=== PATIENT | male | born 1955 | race Caucasian/White ===

== ENCOUNTER 2018-03-04 15:15 | Emergency (ER) | payer BC ==
[2018-03-04] MEDS ORDERED: SODIUM CHLORIDE 0.9% 500 ML IV ONE (15:38)
--- NOTE | 2018-03-04 15:47 | Emergency Department Record ---
History of Present Illness - General Chief complaint: Flank Pain Stated complaint: RT FLANK PAIN Time Seen by Provider: 03/04/18 15:30 Source: Patient Mode of Arrival: Ambulatory Limitations: No limitations - History of Present Illness Initial comments: The patient is here due to the acute onset of R flank pain about 6 hours ago. The pain was sharp and stabbing and nonradiating and was not associated with nausea or vomiting. The patient has had mild dysuria. The patient has a long hx of R kidney stones and has had a very large stone in the past that needed surgery. Since presenting to the ER he did urinate for us and did pass what appears to be a 3-4 mm stone and his pain has since resolved. MD Complaint: Other Onset/Timin -: Hour(s) Location: Right flank Radiation: RLQ Severity: Moderate Severity scale (1-10): 6 Quality: Aching, Dull Consistency: Constant Improves with: Medication, Urination Worsens with: Movement - Related Data Sexually active: Yes Home Medications Medication Instructions Recorded Confirmed Last Taken Famotidine [Pepcid] 1 tab PO DAILY 03/04/18 03/04/18 03/04/18 Potassium Citrate [Urocit-K] 10 meq PO DAILY 03/04/18 03/04/18 03/04/18 Previous Rx's Medication Instructions Recorded Hydrocodone/Acetaminophen [[place] 1 each PO QID #12 tablet 03/04/18 5-325 Tablet] Tamsulosin HCl [Flomax] 0.4 mg PO DAILY #7 cap.er.24h 03/04/18 Allergies Allergy/AdvReac Type Severity Reaction Status Date / Time No Known Drug Allergies Allergy Verified 06/15/15 21:24 Travel Screening - Travel/Exposure Within Last 30 Days Have you traveled within the last 30 days?: No - Travel/Exposure Within Last Year Have you traveled outside the [place] in the last year?: No - Additonal Travel Details Have you been exposed to anyone with a communicable illness?: No - Travel Symptoms Symptom Screening: None Review of Systems Constitutional: Denies: Chills, Fever, Malaise Eyes: Denies: Eye discharge ENT: Denies: Congestion Respiratory: Denies: Cough, Dyspnea Cardiovascular: Denies: Chest pain Past Medical History - SOCIAL HISTORY Smoking Status: Never smoker Alcohol Use: Occasional Drug Use: None - RESPIRATORY Hx Respiratory Disorders: Yes Hx Pneumonia: Yes Hx Sleep Apnea: No Hx of CPAP: No (has not used since bariatric sx) - CARDIOVASCULAR Hx Cardio Disorders: Yes Hx Deep Vein Thrombosis: Yes (10 years ago) Hx Hypertension: Yes Comment:: aortic valve replaced - NEURO Hx Neuro Disorders: No - GI Hx GI Disorders: Yes Hx Abdominal Pain: Yes Hx Hiatal Hernia: Yes (2013) Hx Wt Loss/Wt Gain: Yes (bariatric surgery) Hx of Polyps: Yes Comment:: loss of 210#'s since Nov 2013 Hiatal hernia repair at the time of bariatric - Hx Genitourinary Disorders: Yes Hx Kidney Stones: Yes - ENDOCRINE Hx Endocrine Disorders: Yes Hx Diabetes: Yes (previously) Hx Thyroid Disease: Yes (parathyriod disease) Comment:: not since weight loss - MUSCULOSKELETAL Hx Musculoskeletal Disorders: Yes - PSYCH Hx Psych Problems: No - HEMATOLOGY/ONCOLOGY Hx Hematology/Oncology Disorders: No Family Medical History Any Significant Family History?: No Family Hx Comment (NOT TO BE USED IN PLACE OF ITEMS BELOW): Pt is adopted and has no info on biological family Physical Exam - General General Appearance: Alert, Oriented x3, Cooperative, No acute distress - Head Head exam: Atraumatic, Normocephalic, Normal inspection - Eye Eye exam: Normal appearance, PERRL - Neck Neck exam: Normal inspection, Full ROM. negative: Tenderness - Respiratory Respiratory exam: Normal lung sounds bilaterally. negative: Respiratory distress - Cardiovascular Cardiovascular Exam: Regular rate, Normal rhythm, Normal heart sounds - GI/Abdominal GI/Abdominal exam: Soft, Normal bowel sounds. negative: Rebound, Rigid, Tenderness - Extremities Extremities exam: Normal inspection, Full ROM, Normal capillary refill. negative: Tenderness - Neurological Neurological exam: Alert. negative: Motor sensory deficit Course Vital Signs 03/04/18 15:27 Temperature 98.0 F Pulse Rate 58 L Respiratory 18 Rate Blood Pressure 155/93 Pulse Ox 98 - Reevaluation(s) Reevaluation #1: The patient is doing better at this time. He did pass a 2nd stone while in the ED. His pain is well controlled and he feels comfortable going home and following up with his Urologist this week. He understands the need to return for any worsening symptoms. 03/04/18 17:10 Medical Decision Making - Data Complexity MDM Data: Labs Ordered and/or Reviewed, X-Ray Ordered and/or Reviewed - Lab Data Result diagrams: 03/04/18 15:45 03/04/18 15:45 - Radiology Data Radiology results: Report reviewed (CT: 2 stones, 5 and 6 mm distla R ureter with hydro and stranding.) Disposition Disposition: Discharge Clinical Impression: Ureteral stone with hydronephrosis Disposition: Home, Self-Care Condition: (2) Stable Instructions: Ureteral Stones (ED) Additional Instructions: Please drink plenty of fluids and take the Flomax as directed and use the [place] for pain. Please see Dr. Folyd in the office later this week. Return to the ER for any worsening pain, or any fever, or vomiting. Prescriptions: Hydrocodone/Acetaminophen [[place] 5-325 Tablet] 1 each PO QID #12 tablet Tamsulosin HCl [Flomax] 0.4 mg PO DAILY #7 cap.er.24h Forms: Patient Portal Access Time of Disposition: 17:14 Quality - Quality Measures Quality Measures: N/A - Blood Pressure Screening View Details: Yes Does Patient Have Any of the Following: No Blood Pressure Classification: Hypertensive Reading Systolic Measurement: 155 Diastolic Measurement: 93 Screening for High Blood Pressure: < First Hypertensive BP, F/U Documented > [ G8950] First Hypertensive Follow-up Interventions: Referral to alternative/primary care provider.
[2018-03-04 16:04] LABS: URINE APPEARANCE SL CLOUDY; URINE BILIRUBIN NEGATIVE (NEGATIVE); URINE BLOOD LARGE (NEGATIVE); URINE COLOR YELLOW; URINE GLUCOSE (UA) NEGATIVE (NEGATIVE); URINE KETONE TRACE (NEGATIVE); URINE LEUKOCYTE ESTERASE NEGATIVE (NEGATIVE); URINE NITRITE NEGATIVE (NEGATIVE); URINE PROTEIN NEGATIVE (NEGATIVE); URINE UROBILINOGEN 0.2 E.U./dL (0.20 - 1.00)
[2018-03-04 16:05] LABS: HEMATOCRIT 44.5 % (42.0-52.0); HEMOGLOBIN 14.5 gm/dl (14.0-18.0); MEAN CELL VOLUME 82.7 fl (81-97); MEAN CORPUSCULAR HGB CONC 32.6 g/dl (32-36); MEAN PLATELET VOLUME 11.2 fl (7.4-10.4); PLATELET COUNT 201 K/uL (130-400); RED BLOOD COUNT 5.38 M/uL (4.40-5.70); RED CELL DISTRIBUTION WIDTH 15.3 % (11.5-14.5); WHITE BLOOD COUNT W/O DIFF 10.2 K/uL (4.2-12.2)
[2018-03-04 16:13] LABS: URINE EPITHELIAL CELLS 0 - 2 (FEW); URINE WBC NONE SEEN (0-2/hpf)
[2018-03-04 16:14] LABS: BLOOD UREA NITROGEN 22 mg/dL (8-23); CREATININE 1.4 mg/dL (0.7-1.2); EST GLOMERULAR FILTRATION RATE 54 mL/min
[2018-03-04 16:15] LABS: TOTAL PROTEIN 7.2 g/dL (6.6-8.7)
[2018-03-04 16:16] LABS: PLATELET ESTIMATE NORMAL (NORMAL)
[2018-03-04] MEDS ORDERED: ONDANSETRON HCL IV 4 MG/2 ML VIAL IVP ONE (16:16)
[2018-03-04] MEDS ORDERED: MORPHINE SULFATE 10 MG/ML VIAL IVP ONE (16:16)
[2018-03-04 16:17] LABS: GLUCOSE,RANDOM 88 mg/dL (74-109)
[2018-03-04 16:19] LABS: ALBUMIN 4.2 g/dL (4.0-5.0); ALT/SGPT 21 U/L (<41); AST/SGOT 28 U/L (10.0-50.0)
[2018-03-04 16:20] LABS: ALKALINE PHOSPHATASE 132 U/L (55-149); BILIRUBIN,DIRECT < 0.2 mg/dL (0-0.3)
[2018-03-04] MEDS ORDERED: HYDROMORPHONE HCL 2 MG/ML VIAL IVP ONE (16:24)
--- NOTE | 2018-03-05 07:32 | CT SCAN REPORT ---
EXAM: CT SCAN OF THE ABDOMEN AND PELVIS WITHOUT CONTRAST HISTORY: RIGHT FLANK PAIN TODAY. TECHNIQUE: Standard CT imaging of the abdomen and pelvis was performed without contrast. Comparison: 06/15/15. FINDINGS: There is a small right pleural effusion with associated atelectasis or scarring. The effusion has decreased in size when compared to the previous exam. A small hiatal hernia is present. The patient is status post gastric sleeve procedure. The liver appears normal. The gallbladder is surgically absent. The biliary tree, pancreas, spleen, and left adrenal gland are normal. There is a stable low density right adrenal adenoma. There are two stones within the distal right ureter just above the ureterovesical junction. These measure 5 mm and 6 mm. There is moderate right hydronephrosis with associated perinephric fat stranding. There are multiple nonobstructing stones within the right kidney. Approximately eight stones are visible. The largest is located within the mid pole region and measures 13 x 8 mm. There are two 4 mm nonobstructing stones within the left kidney. There is no left hydronephrosis. The aorta is normal in caliber. There is no retroperitoneal lymphadenopathy. There are scattered diverticula within the colon and greatest within the sigmoid region. There is no evidence for acute diverticulitis. There is nonspecific wall thickening of the rectum which may be artifactual due to incomplete distention. There is no pneumoperitoneum or ascites. The urinary bladder and prostate gland appear within normal limits. Degenerative changes are present within the spine. IMPRESSION: 1. 6 MM AND 5 MM STONES ARE PRESENT WITHIN THE DISTAL RIGHT URETER AND RESULT IN MODERATE HYDRONEPHROSIS AND PERINEPHRIC FAT STRANDING. 2. THERE ARE MULTIPLE NONOBSTRUCTING STONES WITHIN THE RIGHT KIDNEY, THE LARGEST OF WHICH MEASURES 13 X 8 MM. THERE ARE TWO NONOBSTRUCTING STONES WITHIN THE LEFT KIDNEY, THE LARGEST OF WHICH MEASURES 4 MM. 3. SMALL RIGHT PLEURAL EFFUSION WHICH HAS DECREASED IN SIZE FROM THE PREVIOUS EXAMINATION. 4. COLONIC DIVERTICULOSIS WITH NO DIVERTICULITIS. JOB NUMBER: [id number] [facility]
== END 2018-03-04 17:28 | disposition home or self-care (01) ==
LOC: ER 15:15
DX: N13.2 Hydronephrosis with renal and ureteral calculous obstruction (principal); R30.0 Dysuria; I10 Essential (primary) hypertension; Z87.442 Personal history of urinary calculi; Z86.718 Personal history of other venous thrombosis and embolism; Z98.84 Bariatric surgery status
CPT/HCPCS: 99284 ×2; 96374; 96375; 96361; 80076; 80048; 81001; 85027; 74176; J2405; J1170

== ENCOUNTER 2018-06-27 00:04 | Observation (INO) | payer BC ==
[2018-06-27] MEDS ORDERED: 0.9 % SODIUM CHLORIDE 1000ML 1,000 ML IV SCH (00:15)
--- NOTE | 2018-06-27 00:19 | Emergency Department Record ---
History of Present Illness - General Chief Complaint: Fever Stated Complaint: POST OP FEVER Time Seen by Provider: 06/27/18 00:04 Source: Patient Mode of Arrival: Ambulatory Limitations: No limitations - History of Present Illness Initial Comments: 62 yo male presents to ED for evaluation of fever symptoms at home (101 at home) including fatigue, body aches, and dysuria symptoms. Patient is s/p percutaneous nephrostomy tube placement s/p removal [address] Acosta. Patient reports dysuria symptoms that began 4 days ago, was started on Macrobid 3 days ago. Patient reports that his symptoms were improving until this evening. Patient denies cough or abdominal pain symptoms. MD Complaint: Fever Onset/Timin -: Days(s) Maximum Temperature: 102 F Temperature Source: Tympanic Context: Recent procedure, Recent antibiotic use Associated Symptoms: Headache - Related Data Home Medications Medication Instructions Recorded Confirmed Last Taken Apixaban [Eliquis] 5 mg PO DAILY 06/27/18 06/27/18 Unknown Dofetilide 500 mcg PO DAILY 06/27/18 06/27/18 Unknown Nitrofurantoin [place] [Macrobid] 100 mg PO BID 06/27/18 06/27/18 Unknown Tamsulosin HCl [Flomax] 0.4 mg PO DAILY 06/27/18 06/27/18 Unknown Previous Rx's Medication Instructions Recorded Hydrocodone/Acetaminophen [[place] 1 each PO QID #12 tablet 03/04/18 5-325 Tablet] Tamsulosin HCl [Flomax] 0.4 mg PO DAILY #7 cap.er.24h 03/04/18 Allergies Allergy/AdvReac Type Severity Reaction Status Date / Time No Known Drug Allergies Allergy Verified 06/15/15 21:24 Travel Screening - Travel/Exposure Within Last 30 Days Have you traveled within the last 30 days?: No - Travel Symptoms Symptom Screening: Fever (Subjective) Review of Systems Constitutional: Reports: Chills, Fever, Malaise. Denies: Night sweats Eyes: Denies: Eye discharge, Eye pain ENT: Denies: Congestion, Ear pain, Epistaxis Respiratory: Denies: Cough, Dyspnea Cardiovascular: Denies: Chest pain, Dyspnea on exertion Endocrine: Denies: Fatigue, Heat or cold intolerance Gastrointestinal: Denies: Abdominal pain, Nausea, Vomiting Genitourinary: Reports: Dysuria, Frequency Musculoskeletal: Reports: Myalgia. Denies: Arthralgia, Back pain Skin: Denies: Bruising, Change in color Neurological: Reports: Headache. Denies: Abnormal gait, Confusion, Seizure Psychiatric: Denies: Anxiety Hematological/Lymphatic: Denies: Anemia, Blood Clots Past Medical History - SOCIAL HISTORY Smoking Status: Never smoker Drug Use: None - RESPIRATORY Hx Respiratory Disorders: Yes Hx Pneumonia: Yes Hx Sleep Apnea: No Hx of CPAP: No (has not used since bariatric sx) - CARDIOVASCULAR Hx Cardio Disorders: Yes Hx Deep Vein Thrombosis: Yes (10 years ago) Hx Hypertension: Yes Comment:: aortic valve replaced - NEURO Hx Neuro Disorders: No - GI Hx GI Disorders: Yes Hx Abdominal Pain: Yes Hx Hiatal Hernia: Yes (2013) Hx Wt Loss/Wt Gain: Yes (bariatric surgery) Hx of Polyps: Yes Comment:: loss of 210#'s since Nov 2013 Hiatal hernia repair at the time of bariatric - Hx Genitourinary Disorders: Yes Hx Kidney Stones: Yes - ENDOCRINE Hx Endocrine Disorders: Yes Hx Diabetes: Yes (previously) Hx Thyroid Disease: Yes (parathyriod disease) Comment:: not since weight loss - MUSCULOSKELETAL Hx Musculoskeletal Disorders: Yes - PSYCH Hx Psych Problems: No - HEMATOLOGY/ONCOLOGY Hx Hematology/Oncology Disorders: No Family Medical History Family Hx Comment (NOT TO BE USED IN PLACE OF ITEMS BELOW): Pt is adopted and has no info on biological family Physical Exam - General General Appearance: Alert, Oriented x3, Cooperative, Mild distress Limitations: No limitations - Head Head exam: Atraumatic, Normocephalic, Normal inspection Head exam detail: negative: Abrasion, Contusion, Coe's sign, General tenderness, Hematoma, Laceration - Eye Eye exam: Normal appearance. negative: Conjunctival injection, Periorbital swelling, Periorbital tenderness, Scleral icterus - ENT Ear exam: negative: Auricular hematoma, Auricular trauma Nasal Exam: negative: Active bleeding, Discharge, Dried blood, Foreign body Mouth exam: negative: Drooling, Laceration, Muffled voice, Tongue elevation - Neck Neck exam: Normal inspection. negative: Meningismus, Tenderness - Respiratory Respiratory exam: Normal lung sounds bilaterally. negative: Rales, Respiratory distress, Rhonchi, Stridor - Cardiovascular Cardiovascular Exam: Regular rate, Normal rhythm, Normal heart sounds - GI/Abdominal GI/Abdominal exam: Soft. negative: Rebound, Rigid, Tenderness - Rectal Rectal exam: Deferred - exam: Deferred - Extremities Extremities exam: Normal inspection. negative: Pedal edema - Back Back exam: Reports: Other (Post-operative site right lower lumbar region appears clean, dry, and without evidence for infection). Denies: CVA tenderness (R), CVA tenderness (L) - Neurological Neurological exam: Alert, Normal gait, Oriented X3 - Psychiatric Psychiatric exam: Normal affect, Normal mood - Skin Skin exam: Normal color. negative: Abrasion Type of lesion: negative: abrasion Course Vital Signs 06/27/18 00:11 Temperature 98.6 F Pulse Rate [ 80 Pulse Ox Probe] Respiratory 20 Rate Blood Pressure 152/103 [Right Arm] Pulse Ox 97 - Reevaluation(s) Reevaluation #1: 06/27/18 00:52 Initial laboratory studies were reviewed: WBC 7.1, 88% Neutrophils, 0 Bands UA demonstrates: 1+ Oxylate crystals Few Bacteria 10-15 WBCs Patient has returned from CT imaging, results are pending at this time. Reevaluation #2: 06/27/18 01:13 CT Abdomen and Pelvis: Urinary bladder wall thickening c/w cystitis Findings c/w recent stone passage vs. pyelonephritis Patient was updated on all results, will discuss findings with Dr. Acosta. Reevaluation #3: 06/27/18 01:31 Case was discussed with Dr. Acosta, reviewed patient's laboratory findings and CT results, recommends admission and treatment with Ampicillin/Gentamycin for possible failed outpatient treatment of pyelonephritis. Patient and his were updated on the plan of care for admission and further treatment, and are in agreement with the plan of care as directed. Reevaluation #4: 06/27/18 06:50 Case was discussed with Catarino Malik NP, will accept admission at this time. Medical Decision Making - Lab Data Result diagrams: 06/27/18 00:30 06/27/18 00:30 Disposition Disposition: Admit Clinical Impression: Pyelonephritis Disposition: Still a Patient at [facility] Decision to Admit: Admit from ER Decision to Admit Date: 06/27/18 Decision to Admit Time: 01:33 Condition: (2) Stable Time of Disposition: 01:33 Quality - Quality Measures Quality Measures: N/A - Blood Pressure Screening Does Patient Have Any of the Following: Active Dx of HTN Blood Pressure Classification: Normal BP Reading Systolic Measurement: 106 Diastolic Measurement: 73 Screening for High Blood Pressure: Patient Exclusion, Hx of HTN [G9744]
[2018-06-27 00:20] LABS: URINE APPEARANCE CLEAR; URINE BILIRUBIN NEGATIVE (NEGATIVE); URINE BLOOD MODERATE (NEGATIVE); URINE COLOR YELLOW; URINE GLUCOSE (UA) NEGATIVE (NEGATIVE); URINE KETONE NEGATIVE (NEGATIVE); URINE LEUKOCYTE ESTERASE TRACE (NEGATIVE); URINE NITRITE NEGATIVE (NEGATIVE); URINE PROTEIN TRACE (NEGATIVE); URINE UROBILINOGEN 0.2 E.U./dL (0.20 - 1.00)
[2018-06-27 00:36] LABS: URINE BACTERIA FEW; URINE CALCIUM OXALATE CRYSTALS 1+ /hpf; URINE EPITHELIAL CELLS 0 - 2 (FEW)
[2018-06-27 00:36] LABS: ABSOLUTE NEUTROPHIL COUNT 6.19; BASO % 0.3 % (0-6); EOS % 0.8 % (0-6); HEMOGLOBIN 14.2 gm/dl (14.0-18.0); LYMPH % 4.5 % (16-45); MEAN CELL VOLUME 81.9 fl (81-97); MEAN CORPUSCULAR HEMOGLOBIN 26.4 pg (27-33); MEAN CORPUSCULAR HGB CONC 32.3 g/dl (32-36); MEAN PLATELET VOLUME 10.4 fl (7.4-10.4); MONO % 7.2 % (0-9); PLATELET COUNT 202 K/uL (130-400); RED BLOOD COUNT 5.37 M/uL (4.40-5.70); RED CELL DISTRIBUTION WIDTH 14.2 % (11.5-14.5); WHITE BLOOD COUNT W/O DIFF 7.1 K/uL (4.2-12.2)
[2018-06-27 00:48] LABS: BLOOD UREA NITROGEN 30 mg/dL (8-23); CREATININE 1.2 mg/dL (0.7-1.2); EST GLOMERULAR FILTRATION RATE > 60 mL/min
[2018-06-27 00:49] LABS: TOTAL PROTEIN 7.5 g/dL (6.6-8.7)
[2018-06-27 00:51] LABS: GLUCOSE,RANDOM 122 mg/dL (74-109)
[2018-06-27 00:54] LABS: ALB/GLOB RATIO 1.1 (1.1-1.8); ALKALINE PHOSPHATASE 141 U/L (40-129); ALT/SGPT 18 U/L (<41); AST/SGOT 22 U/L (10.0-50.0)
[2018-06-27] MEDS ORDERED: AMPICILLIN SODIUM/SULBACTAM NA 3 G in 0.9 % SODIUM CHLORIDE 100ML 100 ML IVPB ONE (01:30)
[2018-06-27] MEDS ORDERED: SODIUM CHLORIDE 0.9% IV ONE (01:30)
[2018-06-27] MEDS ORDERED: GENTAMICIN SULFATE IV ONE (01:30)
[2018-06-27] MEDS ORDERED: KETOROLAC 30 MG/ML VIAL IVP ONE (01:49)
[2018-06-27] MEDS ORDERED: GENTAMICIN SULFATE 120 MG in 0.9 % SODIUM CHLORIDE 100ML 100 ML IV SCH (02:31)
[2018-06-27] MEDS ORDERED: AMPICILLIN SODIUM/SULBACTAM NA 3 G in 0.9 % SODIUM CHLORIDE 100ML 100 ML IVPB SCH ×2 (02:31→08:00)
[2018-06-27] MEDS: 0.9 % SODIUM CHLORIDE 1000ML 1,000 ML IV PRN ×3 (02:53→20:49)
[2018-06-27] MEDS: ACETAMINOPHEN 500 MG TABLET PO PRN ×2 (03:23→15:35)
[2018-06-27] MEDS: IBUPROFEN 600 MG TABLET PO PRN ×2 (06:08→18:04)
--- NOTE | 2018-06-27 08:05 | CT SCAN REPORT ---
EXAM: CT OF THE ABDOMEN AND PELVIS WITHOUT CONTRAST HISTORY: FEVER, CHILLS AND BODY ACHES. LITHOTRIPSY TWO WEEKS AGO. PRIOR APPENDECTOMY, CHOLECYSTECTOMY, AND BARIATRIC SURGERY. TECHNIQUE: Routine noncontrast CT examination of the abdomen and pelvis was obtained. Lack of oral and IV contrast utilization limits evaluation of the bowel and solid viscera respectively. Comparison: CT of the abdomen and pelvis without contrast dated 03/04/18. FINDINGS: Smooth pleural thickening is again noted in the right hemithorax base likely relating to scarring. There may be a tiny loculated pleural effusion. These findings are unchanged. Also unchanged is linear scarring/atelectasis scattered within the right lung base. The left lung base is grossly clear with the exception of minor linear scarring versus atelectasis. The heart remains mildly enlarged. Mitral annulus calcification is redemonstrated. A small hiatal hernia persists. No new focal abnormality demonstrated within the liver, spleen, pancreas, nor adrenal glands. There is redemonstration of a low density right adrenal gland mass. This measures 2.7 x 1.9 cm. It has a density of -5 Hounsfield units. It is consistent with a lipid rich adenoma. The gallbladder is surgically absent and no biliary ductal dilatation is seen. The kidneys remain normal in position and smoothly marginated. The previously demonstrated obstructing calculus within the distal right ureter is no longer present. There has been resolution of the previously demonstrated right hydroureteronephrosis and there has been clearing of the right perinephric edema/fluid. The previously demonstrated dominant obstructing calculus in the right mid kidney measuring 12.6 mm in maximum diameter is no longer present. In addition, the previously demonstrated larger nonobstructing calculi in the lower right kidney are no longer visualized. Tiny calcifications, however, persist in the lower pole in a somewhat linear configuration. These are unchanged. A few nonobstructing calculi are again noted in the lower pole of the left kidney with the largest measuring approximately 3-4 mm. No obstructive uropathy identified. Evaluation of the urinary bladder is limited by lack of distention. Mild perinephric fat stranding is suggested and there may be mild thickening of the bladder wall. Moderate enlargement of the prostate gland is stable. No new pelvic mass nor adenopathy. No free pelvic fluid. Minor presacral edema is new in the interval. This is nonspecific. No new gross bowel dilatation nor bowel wall thickening. There is colonic diverticulosis without evidence of diverticulitis. By history, the appendix is surgically absent. Post gastric sleeve surgery changes redemonstrated. IMPRESSION: 1. THE PREVIOUSLY DEMONSTRATED OBSTRUCTING CALCULUS IN THE LOWER RIGHT URETER IS NO LONGER PRESENT WITH RESOLUTION OF HYDROURETERONEPHROSIS AND PERINEPHRIC EDEMA. 2. SEVERAL OF THE PREVIOUSLY DEMONSTRATED NONOBSTRUCTING CALCULI IN THE RIGHT KIDNEY ARE NO LONGER IDENTIFIED CONSISTENT WITH HISTORY OF LITHOTRIPSY. TINY CALCULI PERSISTS IN THE LOWER POLE OF THE RIGHT KIDNEY AND THERE ARE A FEW SMALL NONOBSTRUCTING CALCULI WITHIN THE LOWER POLE OF THE LEFT KIDNEY. 3. STATUS POST APPENDECTOMY, CHOLECYSTECTOMY, AND GASTRIC SLEEVE SURGERY. 4. SMALL HIATAL HERNIA REDEMONSTRATED. 5. STABLE RIGHT ADRENAL ADENOMA. 6. APPARENT WALL THICKENING OF THE URINARY BLADDER. THIS MAY JUST RELATE TO INCOMPLETE DISTENTION. THERE IS, HOWEVER, MINOR PERIVESICAL FAT STRANDING. CYSTITIS IS NOT EXCLUDED. MINIMAL NONSPECIFIC PRESACRAL EDEMA, NEW SINCE THE PRIOR EXAMINATION. 7. COLONIC DIVERTICULOSIS WITHOUT EVIDENCE OF DIVERTICULITIS. 8. PLEURAL AND PARENCHYMAL SCARRING REDEMONSTRATED IN THE RIGHT HEMITHORAX BASE. STABLE CARDIOMEGALY. [facility]: [id number] [facility]
[2018-06-27] MEDS ORDERED: HYDROCODONE/APAP 5/325MG TABLET PO SCH (10:00)
[2018-06-27] MEDS ORDERED: APIXABAN 5MG TABLET PO SCH (10:00)
[2018-06-27] MEDS: FAMOTIDINE 20MG TABLET PO SCH (11:06)
[2018-06-27] MEDS: APIXABAN 5MG TABLET PO SCH ×2 (11:06→21:37)
[2018-06-27] MEDS: CALCIUM CITRATE 1200 MG PO SCH (11:06)
[2018-06-27] MEDS: VITAMIN D PO SCH ×2 (11:07→21:39)
[2018-06-27] MEDS: ZINC GLUCONATE 50 MG PO SCH (11:07)
[2018-06-27] MEDS: FERROUS SULFATE 45 MG PO SCH (11:07)
[2018-06-27] MEDS: VITAMIN A 25000 UNIT PO SCH ×2 (11:07→21:39)
[2018-06-27] MEDS: POTASSIUM CITRATE 10 MEQ PO SCH (11:08)
[2018-06-27] MEDS: DOFETILIDE 500 MCG PO SCH ×2 (11:08→21:39)
[2018-06-27] MEDS: CEFTRIAXONE 1GM/50ML BAG 1 GM/50 ML BAG IVPB SCH ×2 (12:07→21:41)
--- NOTE | 2018-06-27 12:50 | History & Physical ---
History of Present Illness - Date of Service Date of Service for History & Physical: 06/27/18 - History of Present Illness Admitting Diagnosis: Pyelonephritis. Recent percutaneous nephrostomy tube placement/removal History of Present Illness: Feliberto Perez is a 62 y.o. M who presented to the ED d/t worsening fever, fatigue, body aches, urgency and nocturia that started 4 days ago. Reported that he had a percutaneous nephrostomy tube that was removed approximately 10 days ago. Follows with Dr. Bautista (Urologist). Stated that he went to his PCP 3 days ago and was placed on Macrobid and that his PCP wanted to put him on cipro but was hesistant d/t his use of Tikosyn. PMHx: Hx of AVR, Hx of DVT, HTN, Hx of bariatric surgery, hx of kidney stones PCP: Dr. Demarcus Oliveros ED Course Vitals: T98.6, BP 152/103, HR 80, RR 20, SPO2 97% on RA WBC 7.1, Neutrophils 88%, Bands 0 U/A: 1+ Oxylate crystals, few bacteria and 10-[address] Abd/Pelvis: Urinary bladder wall thickening consistent with cystitis, Findings consistent with recent stone passage vs. Pyelonephrhitis 06/27/18 1130 Vitals: T 99.1, BP 98/48, RR 18, HR 67, SPO2 96% on RA Lying in bed with blankets pulled up to chin, A&Ox3. Reports that he has the chills and a head ache. States that he "just wants to get rid of this" so that he can continue on with his busy work life. Denies having any abdominal or kidney pain. Is having normal back pain d/t uncomfortable bed. Travel Screening - Travel/Exposure Within Last 30 Days Have you traveled within the last 30 days?: No - Travel/Exposure Within Last Year Have you traveled outside the [place] in the last year?: No - Additonal Travel Details Have you been exposed to anyone with a communicable illness?: No - Travel Symptoms Symptom Screening: Fever (Subjective) Review of Systems Reviewed: No additional complaints except as noted below Constitutional: Reports: Chills, Fever, Malaise. Denies: Night sweats Eyes: Denies: Eye discharge, Eye pain ENT: Denies: Congestion, Ear pain, Epistaxis Respiratory: Denies: Cough, Dyspnea Cardiovascular: Denies: Chest pain, Dyspnea on exertion Endocrine: Denies: Fatigue, Heat or cold intolerance Gastrointestinal: Denies: Abdominal pain, Nausea, Vomiting Genitourinary: Reports: Dysuria, Frequency Musculoskeletal: Reports: Myalgia. Denies: Arthralgia, Back pain Skin: Denies: Bruising, Change in color Neurological: Reports: Headache. Denies: Abnormal gait, Confusion, Seizure Psychiatric: Denies: Anxiety Hematological/Lymphatic: Denies: Anemia, Blood Clots Past Medical History - SOCIAL HISTORY Smoking Status: Never smoker Drug Use: None - RESPIRATORY Hx Respiratory Disorders: Yes Hx Pneumonia: Yes Hx Sleep Apnea: No Hx of CPAP: No (has not used since bariatric sx) - CARDIOVASCULAR Hx Cardio Disorders: Yes Hx Deep Vein Thrombosis: Yes (10 years ago) Hx Hypertension: Yes Comment:: aortic valve replaced - NEURO Hx Neuro Disorders: No - GI Hx GI Disorders: Yes Hx Abdominal Pain: Yes Hx Hiatal Hernia: Yes (2013) Hx Wt Loss/Wt Gain: Yes (bariatric surgery) Hx of Polyps: Yes Comment:: loss of 210#'s since Nov 2013 Hiatal hernia repair at the time of bariatric - Hx Genitourinary Disorders: Yes Hx Kidney Stones: Yes - ENDOCRINE Hx Endocrine Disorders: Yes Hx Diabetes: Yes (previously) Hx Thyroid Disease: Yes (parathyriod disease) Comment:: not since weight loss - MUSCULOSKELETAL Hx Musculoskeletal Disorders: Yes - PSYCH Hx Psych Problems: No - HEMATOLOGY/ONCOLOGY Hx Hematology/Oncology Disorders: No Family Medical History Family Hx Comment (NOT TO BE USED IN PLACE OF ITEMS BELOW): Pt is adopted and has no info on biological family H&P Meds/Allergies - Allergies Allergies: Allergies Allergy/AdvReac Type Severity Reaction Status Date / Time No Known Drug Allergies Allergy Verified 06/15/15 21:24 - Home Medications Home Medications Medication Instructions Recorded Confirmed Last Taken Apixaban [Eliquis] 5 mg PO BID 06/27/18 06/27/18 Unknown Calcium Citrate [Calcitrate] 1,200 mg PO DAILY 06/27/18 06/27/18 Unknown Dofetilide 500 mcg PO BID 06/27/18 06/27/18 Unknown Ferrous Sulfate [Iron] 45 mg PO DAILY 06/27/18 06/27/18 Unknown Tamsulosin HCl [Flomax] 0.4 mg PO QHS 06/27/18 06/27/18 Unknown - Active Medications Active Medications: Current Medications Acetaminophen (Tylenol 500mg Tab) 1,000 mg PO Q6H PRN PRN Reason: PAIN - MILD(1-4)/FEVER Last Admin: 06/27/18 03:23 Dose: 1,000 mg Documented by: Apixaban (Eliquis) 5 mg PO BID COUNTS INCLUDE 234 BEDS AT THE [facility] Last Admin: 06/27/18 11:06 Dose: 5 mg Documented by: Famotidine (Pepcid) 40 mg PO DAILY COUNTS INCLUDE 234 BEDS AT THE [facility] Last Admin: 06/27/18 11:06 Dose: 40 mg Documented by: Sodium Chloride () 1,000 mls @ 125 mls/hr IV .Q8H PRN PRN Reason: LARGE VOLUME IV Last Admin: 06/27/18 12:10 Dose: 125 mls/hr Documented by: CEFTRIAXONE 1GM/50ML BAG (Ceftriaxone 1 Gm-D5w Bag) 1 gm in 50 mls @ 100 mls/hr IVPB Q12HR COUNTS INCLUDE 234 BEDS AT THE [facility] Last Infusion: 06/27/18 12:43 Dose: Infused Documented by: Ibuprofen (Motrin 600mg) 600 mg PO Q6H PRN PRN Reason: FEVER Last Admin: 06/27/18 06:08 Dose: 600 mg Documented by: (Calcium Citrate [ Calcium Citrate] 1, 200 Mg) 1,200 mg PO DAILY COUNTS INCLUDE 234 BEDS AT THE [facility] Last Admin: 06/27/18 11:06 Dose: Not Given Documented by: (Dofetilide [ (Dofetilide] 500 Mcg)) 500 mcg PO BID COUNTS INCLUDE 234 BEDS AT THE [facility] Last Admin: 06/27/18 11:08 Dose: 500 mcg Documented by: (Ferrous Sulfate [ (Iron] 45 Mg)) 45 mg PO DAILY COUNTS INCLUDE 234 BEDS AT THE [facility] Last Admin: 06/27/18 11:07 Dose: 45 mg Documented by: Non-Formulary Medication (Potassium Citrate [Urocit-K]) 10 meq PO DAILY COUNTS INCLUDE 234 BEDS AT THE [facility] Last Admin: 06/27/18 11:08 Dose: 10 meq Documented by: Non-Formulary Medication (Zinc Gluconate [Zinc]) 50 mg PO DAILY COUNTS INCLUDE 234 BEDS AT THE [facility] Last Admin: 06/27/18 11:07 Dose: 50 mg Documented by: Patient Own Med: Vitamin A 25,000 Units 1 each PO BID COUNTS INCLUDE 234 BEDS AT THE [facility] Last Admin: 06/27/18 11:07 Dose: 1 each Documented by: Patient Own Med: Vitamin D 30,000 Units 1 each PO BID COUNTS INCLUDE 234 BEDS AT THE [facility] Last Admin: 06/27/18 11:07 Dose: 1 each Documented by: Tamsulosin HCl (Flomax) 0.4 mg PO QHS COUNTS INCLUDE 234 BEDS AT THE [facility] Physical Exam - Vital Signs Vital Signs: Vital Signs - Last 24 Hrs Temp Pulse Resp BP Pulse Ox 06/27/18 12:00 97 F L 68 18 119/66 90 L 06/27/18 08:54 67 18 06/27/18 08:00 99.1 F 67 18 98/48 96 06/27/18 06:00 98.4 F 71 18 106/73 98 06/27/18 03:50 75 18 06/27/18 02:59 99.2 F 75 18 138/66 96 06/27/18 02:24 100.9 F H 73 20 133/66 97 06/27/18 01:49 101.9 F H 72 20 99/69 97 06/27/18 00:53 99.3 F 06/27/18 00:11 98.6 F 80 20 152/103 97 - General General Appearance: Alert, Oriented x3, Cooperative, Mild distress (shivering) Limitations: No limitations - Head Head exam: Atraumatic, Normocephalic, Normal inspection Head exam detail: negative: Abrasion, Contusion, Coe's sign, General tenderness, Hematoma, Laceration - Eye Eye exam: Normal appearance. negative: Conjunctival injection, Periorbital swelling, Periorbital tenderness, Scleral icterus - ENT ENT exam: Normal exam Ear exam: negative: Auricular hematoma, Auricular trauma Nasal Exam: negative: Active bleeding, Discharge, Dried blood, Foreign body Mouth exam: negative: Drooling, Laceration, Muffled voice, Tongue elevation - Neck Neck exam: Normal inspection. negative: Meningismus, Tenderness - Respiratory Respiratory exam: Normal lung sounds bilaterally. negative: Rales, Respiratory distress, Rhonchi, Stridor - Cardiovascular Cardiovascular Exam: Regular rate, Normal rhythm, Normal heart sounds - GI/Abdominal GI/Abdominal exam: Soft. negative: Rebound, Rigid, Tenderness - Rectal Rectal exam: Deferred - exam: Deferred - Extremities Extremities exam: Normal inspection. negative: Pedal edema - Back Back exam: Reports: Other (Post-operative site right lower lumbar region appears clean, dry, and without evidence for infection). Denies: CVA tenderness (R), CVA tenderness (L) - Neurological Neurological exam: Alert, Normal gait, Oriented X3 - Psychiatric Psychiatric exam: Normal affect, Normal mood - Skin Skin exam: Normal color. negative: Abrasion Type of lesion: negative: abrasion Results - Labs Result Diagrams: 06/27/18 00:30 06/27/18 00:30 Labs Last 24 Hours: Laboratory Results - last 24 hr 06/27/18 06/27/18 06/27/18 00:22 00:30 00:30 WBC 7.1 RBC 5.37 Hgb 14.2 Hct 44.0 MCV 81.9 MCH 26.4 L MCHC 32.3 RDW 14.2 Plt Count 202 MPV 10.4 Neutrophils % 88.0 H Band Neutrophils % 0.0 Lymphocytes % 4.5 L Monocytes % 7.2 Eosinophils % 0.8 Basophils % 0.3 Absolute Neutrophils 6.19 Lymphocytes 4.0 L Monocytes 8.0 Basophils 0.0 Eosinophil Count 0.0 Sodium 140 Potassium 4.4 Chloride 103 Carbon Dioxide 23.0 Anion Gap 14.0 BUN 30 H Creatinine 1.2 Estimated GFR > 60 Random Glucose 122 H Calcium 9.4 Total Bilirubin 0.50 AST 22 ALT 18 Alkaline Phosphatase 141 H Total Protein 7.5 Albumin 4.0 Globulin 3.5 Albumin/Globulin Ratio 1.1 Urine Color Yellow Urine Appearance Clear Urine pH 5.5 Ur Specific [place] >= 1.030 Urine Protein Trace H Urine Glucose (UA) Negative Urine Ketones Negative Urine Blood Moderate Urine Nitrite Negative Urine Bilirubin Negative Urine Urobilinogen 0.2 Ur Leukocyte Esterase Trace H Urine RBC 3 - 6 Urine WBC 10 - 15 Ur Epithelial Cells 0 - 2 Calcium Oxalate Crystal 1+ Urine Bacteria Few - Imaging and Cardiology CT scan - abdomen Status: Report reviewed CT scan - pelvis Status: Report reviewed VTE H&P Assessment - Risk for VTE Risk for VTE: Yes Risk Level: High Risk Assessment Date: 06/27/18 Risk Assessment Time: 11:30 VTE Orders Placed or Will Be Placed: Yes Plan - Detailed Diagnosis and Plan (1) Pyelonephritis Current Visit: Yes Status: Acute Base Code: N12 - TUBULO-INTERSTITIAL NEPHRITIS, NOT SPCF ACUTE OR CHRONIC Comment: 06/27/18 -CT Abd/Pelvis: Findings c/w cystitis, pyelonephritis and recent stone passage -D/C Ampicillin and Gentamycin -Start Rocephin IV -Continue IVF -CBC/BMP to be drawn in the a.m. (2) Headache Current Visit: Yes Status: Acute Base Code: R51 - HEADACHE Comment: 06/27/18 -Alternate Tylenol 1000mg q. 6 hours PRN with Motrin 600mg q. 6 hours PRN (3) Full code status Current Visit: Yes Status: Acute Base Code: Z78.9 - OTHER SPECIFIED HEALTH STATUS Comment: 06/27/18 -Full code this admission (4) DVT prophylaxis Current Visit: Yes Status: Acute Base Code: Z29.9 - ENCOUNTER FOR PROPHYLACTIC MEASURES, UNSPECIFIED Comment: 06/27/18 -High risk d/t age and co-morbidities -Continue home med Eliquis 5mg PO BID -Nursing to encourage ambulation
[2018-06-27] MEDS ORDERED: TAMSULOSIN HCL 0.4 MG CAP.ER.24H PO SCH (22:00)
[2018-06-28] MEDS: 0.9 % SODIUM CHLORIDE 1000ML 1,000 ML IV PRN (06:10)
[2018-06-28] MEDS: IBUPROFEN 600 MG TABLET PO PRN (06:21)
[2018-06-28 06:47] LABS: HEMATOCRIT 38.4 % (42.0-52.0); HEMOGLOBIN 12.1 gm/dl (14.0-18.0); MEAN CELL VOLUME 82.1 fl (81-97); MEAN CORPUSCULAR HGB CONC 31.5 g/dl (32-36); MEAN PLATELET VOLUME 10.7 fl (7.4-10.4); PLATELET COUNT 167 K/uL (130-400); RED BLOOD COUNT 4.68 M/uL (4.40-5.70); RED CELL DISTRIBUTION WIDTH 14.2 % (11.5-14.5); WHITE BLOOD COUNT W/O DIFF 2.6 K/uL (4.2-12.2)
[2018-06-28 06:54] LABS: MEAN CORPUSCULAR HEMOGLOBIN 25.8 pg (27-33)
[2018-06-28 07:00] LABS: BLOOD UREA NITROGEN 23 mg/dL (8-23); EST GLOMERULAR FILTRATION RATE > 60 mL/min; GLUCOSE,RANDOM 105 mg/dL (74-109)
[2018-06-28 07:09] LABS: ANISOCYTOSIS 1+; PLATELET ESTIMATE NORMAL (NORMAL)
[2018-06-28] MEDS: APIXABAN 5MG TABLET PO SCH (09:35)
[2018-06-28] MEDS: FAMOTIDINE 20MG TABLET PO SCH (09:35)
[2018-06-28] MEDS: CALCIUM CITRATE 1200 MG PO SCH (09:36)
[2018-06-28] MEDS: DOFETILIDE 500 MCG PO SCH (09:36)
[2018-06-28] MEDS: FERROUS SULFATE 45 MG PO SCH (09:37)
[2018-06-28] MEDS: VITAMIN A 25000 UNIT PO SCH (09:37)
[2018-06-28] MEDS: VITAMIN D PO SCH (09:38)
[2018-06-28] MEDS: ZINC GLUCONATE 50 MG PO SCH (09:39)
[2018-06-28] MEDS: POTASSIUM CITRATE 10 MEQ PO SCH (09:39)
[2018-06-28] MEDS: CEFTRIAXONE 1GM/50ML BAG 1 GM/50 ML BAG IVPB SCH (09:41)
--- NOTE | 2018-06-28 17:23 | Discharge Summary ---
Providers Discharge Summary Date: 06/28/18 Date of admission: 06/27/18 02:28 Attending physician: LAVERN BROWNE Physical Exam - Vital Signs Vital Signs: Vital Signs - Last 24 Hrs Temp Pulse Resp BP Pulse Ox 06/28/18 13:30 98.2 F 48 L 18 108/57 97 06/28/18 08:04 18 06/28/18 08:00 97.6 F 63 18 102/51 97 06/28/18 06:00 99.5 F 58 L 20 95/53 93 L 06/28/18 00:00 97.7 F 62 20 113/58 95 06/27/18 21:00 55 L 20 06/27/18 20:00 98.2 F 55 L 20 93/47 94 L - General General Appearance: Alert, Oriented x3, Cooperative, No acute distress Limitations: No limitations - Head Head exam: Atraumatic, Normocephalic, Normal inspection Head exam detail: negative: Abrasion, Contusion, Coe's sign, General tenderness, Hematoma, Laceration - Eye Eye exam: Normal appearance. negative: Conjunctival injection, Periorbital swelling, Periorbital tenderness, Scleral icterus - ENT ENT exam: Normal exam Ear exam: negative: Auricular hematoma, Auricular trauma Nasal Exam: negative: Active bleeding, Discharge, Dried blood, Foreign body Mouth exam: negative: Drooling, Laceration, Muffled voice, Tongue elevation - Neck Neck exam: Normal inspection. negative: Meningismus, Tenderness - Respiratory Respiratory exam: Normal lung sounds bilaterally. negative: Rales, Respiratory distress, Rhonchi, Stridor - Cardiovascular Cardiovascular Exam: Regular rate, Normal rhythm, Normal heart sounds - GI/Abdominal GI/Abdominal exam: Soft. negative: Rebound, Rigid, Tenderness - Rectal Rectal exam: Deferred - exam: Deferred - Extremities Extremities exam: Normal inspection. negative: Pedal edema - Back Back exam: Reports: Other (Post-operative site right lower lumbar region appears clean, dry, and without evidence for infection). Denies: CVA tenderness (R), CVA tenderness (L) - Neurological Neurological exam: Alert, Normal gait, Oriented X3 - Psychiatric Psychiatric exam: Normal affect, Normal mood - Skin Skin exam: Normal color. negative: Abrasion Type of lesion: negative: abrasion Hospitalization - Hospitalization Admission Diagnosis: Pyelonephritis. Recent percutaneous nephrostomy tube placement/removal - Problem List/Discharge Diagnosis (1) Pyelonephritis Status: Acute Base Code: N12 - TUBULO-INTERSTITIAL NEPHRITIS, NOT SPCF ACUTE OR CHRONIC Comment: 06/28/18 -CT Abd/Pelvis: Findings c/w cystitis, pyelonephritis and recent stone passage -D/C IV Rocephin, start Cefdinir 300mg PO BID x 10 days -WBC 2.6, Neutrophils 66, GFR >60, BUN/Creatinine WNL -1 low-grade temp (99.5) in last 24 hours (2) Full code status Status: Acute Base Code: Z78.9 - OTHER SPECIFIED HEALTH STATUS Comment: 06/28/18 -Full code this admission (3) DVT prophylaxis Status: Acute Base Code: Z29.9 - ENCOUNTER FOR PROPHYLACTIC MEASURES, UNSPECIFIED Comment: 06/28/18 -High risk d/t age and co-morbidities -Continue home med Eliquis 5mg PO BID -Nursing to encourage ambulation - Hospitalization Course Disposition: Home, Self-Care Hospital Course: Feliberto Perez is a 62 y.o. M who presented to the ED d/t worsening fever, fatigue, body aches, urgency and nocturia that started 4 days ago. Reported that he had a percutaneous nephrostomy tube that was removed approximately 10 days ago. Follows with Dr. Bautista (Urologist). Stated that he went to his PCP 3 days ago and was placed on Macrobid and that his PCP wanted to put him on cipro but was hesistant d/t his use of Tikosyn. PMHx: Hx of AVR, Hx of DVT, HTN, Hx of bariatric surgery, hx of kidney stones PCP: Dr. Demarcus Oliveros ED Course Vitals: T98.6, BP 152/103, HR 80, RR 20, SPO2 97% on RA WBC 7.1, Neutrophils 88%, Bands 0 U/A: 1+ Oxylate crystals, few bacteria and 10-[address] Abd/Pelvis: Urinary bladder wall thickening consistent with cystitis, Findings consistent with recent stone passage vs. Pyelonephrhitis 06/27/18 1130 Vitals: T 99.1, BP 98/48, RR 18, HR 67, SPO2 96% on RA Lying in bed with blankets pulled up to chin, A&Ox3. Reports that he has the chills and a head ache. States that he "just wants to get rid of this" so that he can continue on with his busy work life. Denies having any abdominal or kidney pain. Is having normal back pain d/t uncomfortable bed. 06/28/[address] Browne prior to discharge. Reported feeling better and ready to discharge. Procedures: Imaging and X-Rays 06/27/18 00:14 ABDOMEN/PELVIS WO CONTRAST [CT] Stat Abnormal Labs: Abnormal Lab Results 06/27/18 06/27/18 06/27/18 Range/Units 00:22 00:30 00:30 WBC (4.2-12.2) K/uL Hgb (14.0-18.0) gm/dl Hct (42.0-52.0) % MCH 26.4 L (27-33) pg MCHC (32-36) g/dl MPV (7.4-10.4) fl Neutrophils % 88.0 H (47-80) % Band Neutrophils % (0-5) % Lymphocytes % 4.5 L (16-45) % Lymphocytes 4.0 L (16-45) % Monocytes (0-9) % Chloride (98-107) mmol/L Carbon Dioxide (22-29) mmol/L BUN 30 H (8-23) mg/dL Random Glucose 122 H (74-109) mg/dL Calcium (8.8-10.2) mg/dL Alkaline Phosphatase 141 H (40-129) U/L Urine Protein Trace H (NEGATIVE) Ur Leukocyte Esterase Trace H (NEGATIVE) 06/28/18 06/28/18 Range/Units 06:31 06:31 WBC 2.6 L (4.2-12.2) K/uL Hgb 12.1 L (14.0-18.0) gm/dl Hct 38.4 L (42.0-52.0) % MCH 25.8 L (27-33) pg MCHC 31.5 L (32-36) g/dl MPV 10.7 H (7.4-10.4) fl Neutrophils % (47-80) % Band Neutrophils % 8.0 H (0-5) % Lymphocytes % (16-45) % Lymphocytes 12.0 L (16-45) % Monocytes 14.0 H (0-9) % Chloride 110 H (98-107) mmol/L Carbon Dioxide 21.0 L (22-29) mmol/L BUN (8-23) mg/dL Random Glucose (74-109) mg/dL Calcium 8.6 L (8.8-10.2) mg/dL Alkaline Phosphatase (40-129) U/L Urine Protein (NEGATIVE) Ur Leukocyte Esterase (NEGATIVE) Condition at Discharge: (2) Stable Discharge Medications - Discharge Medications Home Medications: Ambulatory Orders Cholecalciferol (Vitamin D3) [Vitamin D3] 30,000 unit PO BID tab 04/14/15 [Last Taken 03/04/18] Multivitamin [Daily Multiple Vitamin] 2 each PO BID tab 04/14/15 [Last Taken 03/04/18] Vitamin A Palmitate [Vitamin A] 25,000 unit PO BID cap 04/14/15 [Last Taken 03/04/18] Zinc Gluconate [Zinc] 50 mg PO DAILY tab 04/14/15 [Last Taken 03/04/18] Famotidine [Pepcid] 40 mg PO DAILY 03/04/18 [Last Taken 03/04/18] Potassium Citrate [Urocit-K] 10 meq PO DAILY 03/04/18 [Last Taken 03/04/18] Apixaban [Eliquis] 5 mg PO BID 06/27/18 [Last Taken Unknown] Calcium Citrate [Calcitrate] 1,200 mg PO DAILY 06/27/18 [Last Taken Unknown] Dofetilide 500 mcg PO BID 06/27/18 [Last Taken Unknown] Ferrous Sulfate [Iron] 45 mg PO DAILY 06/27/18 [Last Taken Unknown] Tamsulosin HCl [Flomax] 0.4 mg PO QHS 06/27/18 [Last Taken Unknown] Discharge Plan - Discharge Instructions Activity at Discharge: Resume Usual Activities As Tolerated Diet at Discharge: Regular Diet Instructions: Cefdinir (By mouth), Kidney Infection (DC) Additional Instructions: Take cefdinir 300mg twice a day for two weeks. Follow up with your primary doctor in the next 5-7 days. Quality Measures - Quality Measures Quality Measures: Documentation of Current Medications in Medical Record, Screening for High Blood Pressure and F/U Documented - Current Medications Quality Measure: Measure #130: Documentation of Current Medications Documentation of Current Medications: <Current Medications Documented/Reviewed> [[id number]] - Blood Pressure Screening Quality Measure: Screening for High Blood Pressure and Follow-Up Documented Does Patient Have Any of the Following: No Blood Pressure Classification: Normal BP Reading Systolic Measurement: 119 Diastolic Measurement: 66 Screening for High Blood Pressure: < Normal BP, F/U Not Required > [G8783] - Elder Abuse Suspicion Index EASI Reference Information: Caroline MICHELLE, Be C, Julio D, Wilber Blakely.Development and validation of a tool to assist physicians identification of elder abuse: The Elder Abuse Suspicion Index (EASI ). Journal of Elder Abuse and Neglect, 2008; 20 (3): 276-300.
== END 2018-06-28 13:30 | disposition home or self-care (01) ==
LOC: ER 00:04 → MEDSURG 02:28
PROVIDERS: ADMIT Internal Medicine; ATTEND Internal Medicine
DX: N12 Tubulo-interstitial nephritis, not specified as acute or chronic (principal); R51 Headache; E21.3 Hyperparathyroidism, unspecified; R53.83 Other fatigue; Z86.718 Personal history of other venous thrombosis and embolism; Z87.442 Personal history of urinary calculi; Z98.890 Other specified postprocedural states
CPT/HCPCS: 99285 ×2; 96365; 96366; 96375; 96368; 82310; 80048; 80053; 81001; 85027 ×2; 74176; G0378 ×2; J0295; J1885; J3490 ×2; J0696 ×2; 99217; 99220; J1580; J7030

== ENCOUNTER 2018-09-16 17:29 | Emergency (ER) | payer BC ==
--- NOTE | 2018-09-16 18:26 | Emergency Department Record ---
History of Present Illness - General Stated Complaint: RT LEG PAIN/SWELLING Time Seen by Provider: 09/16/18 18:24 Source: Patient Mode of Arrival: Ambulatory Limitations: No limitations - History of Present Illness Initial Comments: 62 yo male presents to ED for evaluation of pain and swelling to the right lower extremity that began 1 week ago following direct blow of the anterior lower extremity into a running board while getting into a vehicle. Patient takes Eliquis daily, but was concerned about possible blood clot due to a "knot" to the anterior tibial region. Patient denies pain to the calf/popliteal region, reports edema and bruising to the ankle/foot following his injury. Edema does improve with elevation and compression stockings. MD Complaint: Leg injury Onset/Timin -: Week(s) Injury: Leg: Left Type of Injury: Blunt Place: Home Severity: Moderate Improves With: Other (Elevation) Worsens With: Weight bearing Context: Direct blow - Related Data Allergies Allergy/AdvReac Type Severity Reaction Status Date / Time No Known Drug Allergies Allergy Verified 06/15/15 21:24 Review of Systems Constitutional: Denies: Chills, Fever, Malaise, Night sweats Eyes: Denies: Eye discharge, Eye pain ENT: Denies: Congestion, Ear pain, Epistaxis Respiratory: Denies: Cough, Dyspnea Cardiovascular: Denies: Chest pain, Dyspnea on exertion Endocrine: Denies: Fatigue, Heat or cold intolerance Gastrointestinal: Denies: Abdominal pain, Nausea, Vomiting Genitourinary: Denies: Incontinence, Retention Musculoskeletal: Reports: Myalgia. Denies: Arthralgia, Back pain, Gout, Joint swelling Skin: Reports: Bruising. Denies: Change in color Neurological: Denies: Abnormal gait, Confusion, Headache, Tingling, Tremors Psychiatric: Denies: Anxiety Hematological/Lymphatic: Reports: Easy bleeding, Easy bruising. Denies: Anemia, Blood Clots Past Medical History - SOCIAL HISTORY Smoking Status: Never smoker Drug Use: None - RESPIRATORY Hx Respiratory Disorders: Yes Hx Pneumonia: Yes Hx Sleep Apnea: No Hx of CPAP: No (has not used since bariatric sx) - CARDIOVASCULAR Hx Cardio Disorders: Yes Hx Deep Vein Thrombosis: Yes (10 years ago) Hx Hypertension: Yes Comment:: aortic valve replaced - NEURO Hx Neuro Disorders: No - GI Hx GI Disorders: Yes Hx Abdominal Pain: Yes Hx Hiatal Hernia: Yes (2013) Hx Wt Loss/Wt Gain: Yes (bariatric surgery) Hx of Polyps: Yes Comment:: loss of 210#'s since Nov 2013 Hiatal hernia repair at the time of bariatric - Hx Genitourinary Disorders: Yes Hx Kidney Stones: Yes - ENDOCRINE Hx Endocrine Disorders: Yes Hx Diabetes: Yes (previously) Hx Thyroid Disease: Yes (parathyriod disease) Comment:: not since weight loss - MUSCULOSKELETAL Hx Musculoskeletal Disorders: Yes - PSYCH Hx Psych Problems: No - HEMATOLOGY/ONCOLOGY Hx Hematology/Oncology Disorders: No Family Medical History Family Hx Comment (NOT TO BE USED IN PLACE OF ITEMS BELOW): Pt is adopted and has no info on biological family Physical Exam - General General Appearance: Alert, Oriented x3, Cooperative, Mild distress Limitations: No limitations - Head Head exam: Atraumatic, Normocephalic, Normal inspection Head exam detail: negative: Abrasion, Contusion, Coe's sign, General tenderness, Hematoma, Laceration - Eye Eye exam: Normal appearance. negative: Conjunctival injection, Periorbital swelling, Periorbital tenderness, Scleral icterus - ENT Ear exam: negative: Auricular hematoma, Auricular trauma Nasal Exam: negative: Active bleeding, Discharge, Dried blood, Foreign body Mouth exam: negative: Drooling, Laceration, Muffled voice, Tongue elevation - Neck Neck exam: Normal inspection. negative: Meningismus, Tenderness - Respiratory Respiratory exam: Normal lung sounds bilaterally. negative: Respiratory distress, Rhonchi, Stridor, Wheezes - Cardiovascular Cardiovascular Exam: Regular rate, Normal rhythm, Normal heart sounds - GI/Abdominal GI/Abdominal exam: Soft. negative: Rebound, Rigid, Tenderness - Rectal Rectal exam: Deferred - exam: Deferred - Extremities Extremities exam: Pedal edema, Tenderness, Other (Mild TTP over a hematoma present over the anterior tibial region 2/3 length to the ankle, no clinical evidence for cellulitis on examination, no pain with compression of the calf or popliteal region. 2+ edema present distlaly, mild ecchymosis to the foot extending to the toes.). negative: Calf tenderness - Back Back exam: Denies: CVA tenderness (R), CVA tenderness (L) - Neurological Neurological exam: Alert, Normal gait, Oriented X3 - Psychiatric Psychiatric exam: Normal affect, Normal mood - Skin Skin exam: Normal color. negative: Abrasion Type of lesion: negative: abrasion Course - Reevaluation(s) Reevaluation #1: 09/16/18 18:32 MDM: Examination is not c/w DVT, no calf pain/popliteal pain on examination. Patient is taking Eliquis daily. Findings appear c/w anterior tibial hematoma and bruising to the foot/toes foll owing his injury. Doppler examination is not felt to be deemed necessary as a result. No clinical evidence for cellulitis on examination either (not warm to palp) Patient appears stable for discharge with continued symptomatic care as directed. Disposition Disposition: Discharge Clinical Impression: Hematoma of right lower extremity Qualifiers: Encounter type: initial encounter Qualified Code(s): S80.11XA - Contusion of right lower leg, initial encounter Disposition: Home, Self-Care Condition: (2) Stable Instructions: Hematoma (ED) Additional Instructions: Return to ED if your symptoms worsen or if you have any concerns. Continue your home medications as prescribed. Elevate your lower extremity to reduce swelling. Follow-up with your family doctor in 3-5 days as directed. Forms: Patient Portal Access Time of Disposition: 18:26 Quality - Quality Measures Quality Measures: N/A - Blood Pressure Screening Does Patient Have Any of the Following: Active Dx of HTN Blood Pressure Classification: Pre-Hypertensive BP Reading Systolic Measurement: 136 Diastolic Measurement: 65 Screening for High Blood Pressure: Patient Exclusion, Hx of HTN [[id number]]
== END 2018-09-16 19:06 | disposition home or self-care (01) ==
LOC: ER 17:29
DX: S80.11XA Contusion of right lower leg, initial encounter (principal); W22.8XXA Striking against or struck by other objects, initial encounter; Y92.008 Other place in unspecified non-institutional (private) residence as the place of occurrence of the external cause; Z79.01 Long term (current) use of anticoagulants; I10 Essential (primary) hypertension; Z86.718 Personal history of other venous thrombosis and embolism
CPT/HCPCS: 99282